=== PATIENT | female | born 1990 | race Two or more races ===

== ENCOUNTER 2024-05-13 10:46 | Inpatient (IN) | payer OTHER ==
[2024-05-13 11:47] VITALS: BMI 21.5
[2024-05-13] MEDS ORDERED: METHOCARBAMOL 500 MG TABLET PO PRN (14:11)
[2024-05-13] MEDS ORDERED: NICOTINE 21 MG/24 HOURS TOPICAL PATCH TD PRN (14:11)
[2024-05-13] MEDS ORDERED: NALOXONE (NARCAN) HCL 4 MG/0.1 ML SPRAY NS PRN (14:11)
[2024-05-13] MEDS ORDERED: LOPERAMIDE HCL 2 MG CAPSULE PO PRN (14:11)
[2024-05-13] MEDS ORDERED: DICYCLOMINE HCL 10 MG CAPSULE PO PRN (14:11)
[2024-05-13] MEDS ORDERED: NICOTINE POLACRILEX 4 MG GUM BUC PRN (14:11)
[2024-05-13] MEDS ORDERED: POLYETHYLENE GLYCOL (HEALTHYLAX) 3350 17 GM PACKET PO PRN (14:11)
[2024-05-13] MEDS ORDERED: BENZOCAINE/MENTHOL (CHLORASEPTIC ) LOZENGE MM PRN (14:11)
[2024-05-13] MEDS ORDERED: BENZONATATE 200 MG CAPSULE PO PRN (14:11)
[2024-05-13] MEDS ORDERED: NALOXONE HCL 0.4 MG/ML VIAL IM PRN (14:11)
[2024-05-13] MEDS ORDERED: MAGNESIUM HYDROX 2400MG/30ML ORAL SUSPENSION 30 ML CUP PO PRN (14:11)
[2024-05-13] MEDS ORDERED: ACETAMINOPHEN 325 MG TABLET (FP) PO PRN (14:11)
[2024-05-13] MEDS ORDERED: IBUPROFEN 400 MG TABLET (FP) PO PRN (14:11)
[2024-05-13] MEDS ORDERED: BISMUTH SUBSALICYLATE 262 MG/15 ML BTL PO PRN (14:11)
[2024-05-13] MEDS ORDERED: guaiFENesin 600 MG TABLET.ER (FP) PO PRN (14:11)
[2024-05-13] MEDS ORDERED: methaDONE HCL 10 MG TABLET PO ONE (16:00)
[2024-05-13] MEDS: diazePAM 5 MG TABLET PO SCH (17:33)
[2024-05-13] MEDS: methaDONE HCL 10 MG TABLET PO ONE (17:34)
[2024-05-13] MEDS: MELATONIN 5 MG TABLETS PO SCH (22:46)
[2024-05-13] MEDS: THIAMINE 100 MG TABLET PO SCH (22:46)
[2024-05-14 09:22] LABS: HEMATOCRIT 34.3 % (32.4-45.2); HEMOGLOBIN 11.4 GM/dL (10.7-15.3); MCH 30.5 pg (25.7-33.7); MCHC 33.3 g/dl (32.0-36.0); MEAN CELL VOLUME 91.7 fl (80-96); MEAN PLT VOLUME 10.1 fl (7.5-11.1); PLATELET COUNT 206 10^3/uL (134-434); RBC 3.74 M/mm3 (3.60-5.2); WHITE BLOOD COUNT 6.5 K/mm3 (4.0-10.0)
[2024-05-14 09:24] LABS: CHLORIDE 107 mmol/L (98-107); POTASSIUM 4.1 mmol/L (3.5-5.1); SODIUM 141 mmol/L (136-145)
[2024-05-14 09:31] LABS: SGOT/AST 20 U/L (15-37); SGPT/ALT 20 U/L (13-61)
[2024-05-14 09:33] LABS: ANION GAP 6 mmol/L (4-13); BILIRUBIN,TOTAL 0.4 mg/dL (0.2-1); CO2 28 mmol/L (21-32); GLUCOSE,RANDOM 77 mg/dL (74-106)
[2024-05-14 09:34] LABS: ALK PHOS 69 U/L (45-117)
[2024-05-14 09:36] LABS: CREATININE 0.4 mg/dL (0.55-1.3)
[2024-05-14 09:49] LABS: SICKLE CELL SCREEN NEGATIVE (NEGATIVE)
[2024-05-14] MEDS: PRENATAL VITAMINS W/ FOLIC ACID TABLET (FP) PO SCH (10:12)
[2024-05-14] MEDS: methaDONE 40 MG, methaDONE 10 MG PO ONE (10:14)
[2024-05-15] MEDS ORDERED: cloNIDine HCL 0.1 MG TABLET PO PRN
[2024-05-15] MEDS: diazePAM 5 MG TABLET PO SCH (05:31)
[2024-05-15] MEDS: methaDONE 40 MG, methaDONE 20 MG PO ONE (09:33)
[2024-05-15] MEDS: MAG HYDROX/AL HYDROX/SIMETH 30 ML UNIT-DOSE CUP PO PRN (13:32)
[2024-05-16] MEDS: diazePAM 5 MG TABLET PO SCH (05:29)
[2024-05-16] MEDS: diazePAM 5 MG TABLET PO PRN (08:10)
[2024-05-16] MEDS: methaDONE 40 MG, methaDONE 30 MG PO ONE (09:41)
[2024-05-16 21:46] VITALS: RESP 16
[2024-05-16] MEDS: IBUPROFEN 600 MG TABLET (FP) PO PRN (22:31)
[2024-05-17] MEDS: diazePAM 5 MG TABLET PO ONE (05:36)
[2024-05-17] MEDS: methaDONE HCL 40 MG DISPERSABLE TABLET PO ONE (09:17)
[2024-05-17] MEDS: diazePAM 5 MG TABLET PO PRN (11:53)
[2024-05-17 12:34] VITALS: BP 146/93; PULSE 82; TEMP 97.5
[2024-05-18] MEDS ORDERED: methaDONE 80 MG, methaDONE 10 MG PO ONE (10:00)
== END 2024-05-17 13:34 | disposition left against medical advice (07) | DRG 770 ==
LOC: YASAS 10:46 → Y6N 14:17
PROVIDERS: ADMIT Surgery; ATTEND Family Medicine Addiction Medicine
PROC: HZ2ZZZZ Detoxification Services for Substance Abuse Treatment (ICD-10-PCS; principal; 2024-05-13)
DX: F11.23 Opioid dependence with withdrawal (principal); F13.20 Sedative, hypnotic or anxiolytic dependence, uncomplicated; F14.20 Cocaine dependence, uncomplicated; F17.210 Nicotine dependence, cigarettes, uncomplicated; F41.9 Anxiety disorder, unspecified; F43.10 Post-traumatic stress disorder, unspecified
CPT/HCPCS: 36415; 71046-TC-FY; 80053; 80305; 80307; 81025; 85027; 85660; 86780; 93005; 93010